=== PATIENT | male | born 1950 | race Two or more races ===

== ENCOUNTER 2017-12-23 13:50 | Emergency (ER) | payer MEDICARE ==
[~2017-12-23] VITALS: Ht 180.3 cm; Wt 77.1 kg
[2017-12-23 14:09] VITALS: BP 159/83
[2017-12-23] MEDS ORDERED: REGLAN10 MG ORAL (15:17)
[2017-12-23] MEDS ORDERED: ZITHROMAX250 MG ORAL (15:17)
[2017-12-23 15:25] VITALS: BP 156/79
--- NOTE | 2017-12-23 15:31 | Emergency Room Report ---
History of Present Illness General Chief Complaint: Dizziness Source: Patient Present Illness HPI 67-year-old male presents ED complaining of dizziness. Started this morning. Describes room spinning sensation. Worsening with sudden head movement. Denies nausea or vomiting. Denies headache or blurry vision. Denies neck stiffness. Denies fevers or chills. Denies chest pain or shortness of breath. Complaining of some ear pain on the right, dull, 5 out of 10, nonradiating. Notes prior history of vertigo. States he was taking meclizine but it is making him drowsy. No other aggravating relieving factors. Denies any other associated symptoms Allergies: Coded Allergies: EPHEDRINE (Verified Allergy, Unknown, 12/23/17) ERYTHROMYCIN BASE (Verified Allergy, Unknown, 12/23/17) Patient History Past Medical History: none Past Surgical History: none Pertinent Family History: none Social History: Denies: smoking, alcohol use, drug use Immunizations: UTD Reviewed Nursing Documentation: PMH: Agreed; PSxH: Agreed Nursing Documentation-PMH Past Medical History: No Stated History Review of Systems All Other Systems: negative except mentioned in HPI Physical Exam Vital Signs Date Time Temp Pulse Resp B/P (MAP) Pulse Ox O2 Delivery O2 Flow Rate FiO2 12/23/17 13:59 97.8 70 18 170/88 98 Room Air 97.9 Sp02 EP Interpretation: reviewed, normal General Appearance: no apparent distress, alert, GCS 15, non-toxic Head: normocephalic, atraumatic Eyes: bilateral eye normal inspection, bilateral eye PERRL ENT: hearing grossly normal, normal pharynx, no angioedema, normal voice, other - R TM poor light reflex. erythematous Neck: full range of motion, supple/symm/no masses Respiratory: chest non-tender, lungs clear, normal breath sounds, speaking full sentences Cardiovascular #1: regular rate, rhythm, no edema Cardiovascular #2: 2+ carotid (R), 2+ carotid (L), 2+ radial (R), 2+ radial (L) , 2+ dorsalis pedis (R), 2+ dorsalis pedis (L) Gastrointestinal: normal bowel sounds, non tender, soft, non-distended, no guarding, no rebound Rectal: deferred Genitourinary: normal inspection, no CVA tenderness Musculoskeletal: back normal, gait/station normal, normal range of motion, non- tender Neurologic: alert, oriented x3, responsive, motor strength/tone normal, sensory intact, speech normal Psychiatric: judgement/insight normal, memory normal, mood/affect normal, no suicidal/homicidal ideation Reflexes: 3+ bicep (R), 3+ bicep (L), 3+ tricep (R), 3+ tricep (L), 3+ knee (R) , 3+ knee (L) Skin: normal color, no rash, warm/dry, well hydrated Lymphatic: no adenopathy Medical Decision Making Diagnostic Impression: Primary Impression: Vertigo Additional Impression: Otitis media Qualified Codes: H66.90 - Otitis media, unspecified, unspecified ear ER Course Hospital Course 67-year-old male presents ED complaining of dizziness, R ear pain Differential diagnoses include: arrythmia, otitis media, vertigo Clinical course Patient placed on stretcher. on telemetry monitor. After initial history and physical I ordered EKG. R TM erythematous, poor light reflex EKG - NSR, no acute ischemic changes interpreted by me Given Reglan here. On reassessment states symptoms have improved. We will prescribe antibiotics for the otitis media which is likely triggering the vertigo. Recommend close follow-up with PMD I. I feel this is a highly complex case requiring extensive working including EKG/Rhythm strip, Xray/CT/US, Blood/urine lab work, repeat exams while in ED, and administration of strong opiates/narcotics for pain control, admission to hospital or close patient follow up. Diagnosis - vertigo, otitis media stable and discharged to home with prescription for reglan, azithromycin. Followup with PMD. Return to ED if symptoms recur or worsen EKG Diagnostic Results Rate: normal Rhythm: NSR ST Segments: no acute changes ASA given to the pt in ED: No Rhythm Strip Diag. Results EP Interpretation: yes Rhythm: NSR, no PVC's, no ectopy Last Vital Signs Date Time Temp Pulse Resp B/P (MAP) Pulse Ox O2 Delivery O2 Flow Rate FiO2 12/23/17 14:09 97.9 74 13 159/83 98 Room Air 97.9 Status: improved Disposition: HOME, SELF-CARE Condition: Stable Scripts Metoclopramide Hcl* (REGLAN*) 10 Mg Tablet 10 MG ORAL Q6HR, #20 TAB Prov: Christiano Ashraf MD 12/23/17 Azithromycin* (ZITHROMAX*) 250 Mg Tablet 250 MG ORAL DAILY, #6 TAB 0 Refills Take two tables once daily for 1 day, then one tablet once daily for 4 days. Prov: Christiano Ashraf MD 12/23/17 Patient Instructions: Vertigo Christiano Ashraf MD Dec 23, 2017 15:31
--- NOTE | 2017-12-24 15:06 | Cardiology Report ---
APPROVED REPORT EKG Measurement Heart [id number] Normal sinus rhythm with sinus arrhythmia Normal ECG
== END 2017-12-23 15:25 | disposition home or self-care (01) ==
LOC: EMR 14:51
DX: R42 Dizziness and giddiness (principal); H66.91 Otitis media, unspecified, right ear; Z88.1 Allergy status to other antibiotic agents; Z88.8 Allergy status to other drugs, medicaments and biological substances
CPT/HCPCS: 93005; 99284